=== PATIENT | male | born 1995 | race Caucasian/White ===

== ENCOUNTER 2017-09-12 23:54 | Emergency (ER) | payer OTHER, SELFPAY ==
[2017-09-12 23:58] VITALS: BP 151/108; PULSE 123; RESP 16; TEMP 36.8; O2SAT 97
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
[2017-09-13 00:18] VITALS: BP 142/105; PULSE 115; O2SAT 98
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
[2017-09-13 00:32] LABS: Add Manual Diff / Slide Review NO; Basophils Percent Auto 0.3 % (0-2); Eosinophils Percent Auto 0.6 % (2-4); Hematocrit 43.1 % (41-53); Hemoglobin 15.1 g/dL (13.5-17.5); Mean Corpuscular HGB Conc 35.1 % (30-36); Mean Corpuscular Hemoglobin 31.6 PG (26-34); Mean Corpuscular Volume 89.9 fL (80-100); Monocytes Percent Auto 5.8 % (3-14); Neutrophils Absolute Auto 6600 /uL (3000-5900); Neutrophils Percent Auto 73.3 % (50-75); Platelet Count 286 X10^3/uL (150-400); Red Blood Cell Count 4.79 X10^6/uL (4.5-5.9)
[2017-09-13 00:43] LABS: Alanine Aminotransferase 49 IU/L (21-72); Albumin Globulin Ratio 1.7 (1.0-2.8); Alkaline Phosphatase 76 U/L (38-126); Amylase 83 U/L (30-110); Aspartate Aminotransferase 60 IU/L (17-59); Bilirubin Total 0.5 mg/dL (0.2-1.3); Blood Urea Nitrogen 8 mg/dL (9-20); Calcium 9.5 mg/dL (8.4-10.2); Carbon Dioxide 21 mmol/L (22-32); Chloride 108 mmol/L (98-107); Estimated Glomerular Filt Rate > 60.0 mL/min (>60); Ethanol (ETOH) 168 mg/dL; Globulin 2.9 g/dL (1.7-4.1); Glucose 102 mg/dL (70-100); HEMOLYSIS < 15 (0-50); Potassium 3.7 mmol/L (3.4-5.1); Sodium 148 mmol/L (137-145); Total Protein 7.9 g/dL (6.3-8.2)
[2017-09-13 01:16] VITALS: BP 155/105; PULSE 114; O2SAT 98
--- NOTE | 2017-09-13 03:07 | PC.NURSE ---
he had multiple abrasions on his right lower side and left arm that were cleaned with betacept and water. bacitracin applied and telfa with kerlix wraps.bacitracin also to suture line before dressing.
[2017-09-13 03:34] VITALS: BP 141/99; PULSE 102; RESP 18; TEMP 36.6; O2SAT 99
== END 2017-09-13 03:38 | disposition home or self-care (01) ==
PROVIDERS: Emergency Provider Emergency Medicine
DX: S41.111A Laceration without foreign body of right upper arm, initial encounter (principal); V48.5XXA Car driver injured in noncollision transport accident in traffic accident, initial encounter
CPT/HCPCS: 12004; 36591; 70450; 71260; 72125; 74177; 80053; 80320; 81003; 82150; 85025; 99283; 99285; Q9967